=== PATIENT | female | born 1955 | race Caucasian/White ===

== ENCOUNTER 2019-10-27 13:28 | Outpatient (CLI) | payer OTHER, SELFPAY ==
--- NOTE | ~2019-10-27 | DEXA_ITS ---
BMD(1) Young-Adult(2,7) Age-Matched(3) Region (g/cm2) T-score Z-score WHO Classification Neck Left 1.102 0.5 1.7 Normal Right 1.079 0.3 1.6 Normal Mean 1.090 0.4 1.7 Normal Difference 0.024 0.2 0.2 - Total Left 1.274 2.1 3.1 Normal Right 1.161 1.2 2.2 Normal Mean 1.218 1.7 2.7 Normal Difference 0.113 0.9 0.9 - Hip [place] Length Comparison (mm) (Right = 99.8 mm) (Mean = 99.9 mm) (Left = 99.5 mm) Trend: Total Mean Change vs Change vs Measured Age BMD(1) Baseline Previous Date (years) (g/cm2) (%) (%) 10/27/2019 [age] 1.218 baseline - 1 - Statistically 68% of repeat scans fall within 1SD (+- 0.010 g/cm2 for DualFemur Total) 2 - [place] (Combined NHANES (ages 20-30) / iMega (ages 20-40)) Femur Reference Population (v112) 3 - Matched for Age, Weight (females 25-100 kg), Ethnic 7 - DualFemur Total T-score difference is 0.9. Asymmetry is Mild. 11 - World Health Organization - Definition of Osteoporosis and Osteopenia for Women: Normal = T-score at or above -1.0 SD; Osteopenia = T-score between -1.0 and -2.5 SD; Osteoporosis = T-score at or below -2.5 SD; (WHO definitions only apply when a young healthy Women reference database is used to determine T-scores.) Printed: 10/27/2019 2:40:26 PM (13.60); Filename: [id number]; Right Femur; 18.5:%Fat=27.1%; Neck Angle (deg)= 59; Scan Mode: Standard 37.0 uGy; Left Femur; 17.6:%Fat=34.6%; Neck Angle (deg)= 68; Scan Mode: Standard 37.0 uGy [employer] [id number] Dear Ellen Cotton, Your patient Micaela Smart completed a BMD test on 10/27/2019 using the [employer] DXA System (analysis version: 13.60) manufactured by [employer]. The following summarizes the results of our evaluation. PATIENT BIOGRAPHICAL: Name: Micaela Smart Date: 1955 Height: 59.0 in. Gender: Female Exam Date: 10/27/2019 Weight: 149.0 lbs. Indications: Back Pain, Breast Cancer, Caffeinated drinks, , Height Loss, History of Fracture (Adult), Menopause Fractures: Spine Treatments: Calcium, Evista, Multivitamin, Vitamin D ASSESSMENT: The BMD measured at Femur Neck Right is 1.079 g/cm2 with a T-score of 0.3. This patient is considered normal according to World Health Organization (WHO) criteria. Fracture risk is low. Site Region Measured Measured WHO Young Adult Young Adult BMD Date Age Classification T-score AM Z-score DualFemur Neck Left 10/27/2019 62.5 Normal 0.5 1.7 1.102 g/cm2 DualFemur Neck Right 10/27/2019 62.5 Normal 0.3 1.6 1.079 g/cm2 DualFemur Total Mean 10/27/2019 62.5 Normal 1.7 2.7 1.218 g/cm2 World Health Organization (WHO) criteria for post-menopausal, Women: Normal: T-score at or above -1 SD Osteopenia: T-score between -1 and -2.5 SD Osteoporosis: T-score at or below -2.5 SD RECOMMENDATIONS: All patients should ensure an adequate intake of dietary calcium (1200 mg/d) and vitamin D (400-800 IU daily). FOLLOW-UP: People with jade
[2019-10-27 13:52] LABS: Hematocrit 37.5 % (35.0-49.0); Hemoglobin 11.9 g/dL (12.0-15.0)
[2019-10-27 14:06] LABS: Hemoglobin A1C 5.7 % (<5.7)
[2019-10-27 14:09] LABS: Urine Cotinine NEGATIVE (Negative)
--- NOTE | 2019-10-27 14:10 | ECG_ITS ---
Measurements Intervals [place] Rate: 64 P: 12 SC: 148 QRS: 62 QRSD: 84 T: 31 QT: 404 QTc: 418 Interpretive Statements SINUS RHYTHM DELAYED PRECORDIAL R/S TRANSITION BORDERLINE ECG Electronically Signed On 10-27-2019 16:37:45 CDT by Ángel Tena D.O.
[2019-10-27 14:39] LABS: Estimated Glomerular Filt Rate > 60; Glucose 84 mg/dL (70-99)
== END 2019-10-27 13:29 | disposition home or self-care (01) ==
LOC: CHSIMG 13:39
PROVIDERS: PCP Family Medicine; Visit Provider Nurse Practitioner
DX: M17.12 Unilateral primary osteoarthritis, left knee (principal); Z13.820 Encounter for screening for osteoporosis; Z79.899 Other long term (current) drug therapy; Z13.1 Encounter for screening for diabetes mellitus
CPT/HCPCS: 77080; 80307; 82040; 82565; 82947; 83036; 85014; 85018; 93005

== ENCOUNTER 2019-11-22 09:52 | Outpatient (CLI) | payer OTHER, SELFPAY ==
[2019-11-22 11:04] LABS: Basophils Percent Auto 0.4 % (0.2-1.2); Eosinophils Absolute Auto 0.1 K/mm3 (0-0.3); Immature Granulocyte Absolute 0.01 K/mm3 (0.00-0.031); Immature Granulocyte Percent A 0.2 % (0-0.5); Lymphocytes Absolute Auto 1.42 K/mm3 (0.9-3.2); Lymphocytes Percent Auto 25.2 % (18.3-44.2); Mean Corpuscular HGB Conc 33.3 g/dl (32-36); Mean Corpuscular Volume 89.9 fl (80-100); Mean Platelet Volume 9.9 fl (7.4-10.4); Monocytes Absolute Auto 0.5 K/mm3 (0.1-0.6); Neutrophils Absolute Auto 3.6 K/mm3 (1.3-6.7); Neutrophils Percent Auto 64.2 % (45.5-73.1); Platelet Count Result 367 k/mm3 (150-375); Red Blood Count 4.34 M/mm3 (4.2-5.4); Red Cell Distribution Width 14.1 % (11.5-14.5); White Blood Count 5.6 K/mm3 (4.5-10.0)
== END 2019-11-22 09:53 | disposition home or self-care (01) ==
LOC: ANHSURGERY 09:57
PROVIDERS: PCP Family Medicine; Visit Provider Orthopaedic Surgery
DX: Z01.812 Encounter for preprocedural laboratory examination (principal); M17.12 Unilateral primary osteoarthritis, left knee
CPT/HCPCS: 36415; 85025; 87081

== ENCOUNTER 2019-12-17 01:11 | Outpatient (CLI) | payer OTHER, SELFPAY ==
[2019-12-17 18:04] LABS: SARS-CoV-2 RNA PCR Negative
== END 2019-12-17 01:12 | disposition home or self-care (01) ==
LOC: ANHCOVIDDT 01:11
PROVIDERS: PCP Family Medicine; Visit Provider Orthopaedic Surgery
DX: Z01.812 Encounter for preprocedural laboratory examination (principal); Z20.828 Contact with and (suspected) exposure to other viral communicable diseases
CPT/HCPCS: 87635; C9803; U0003

== ENCOUNTER 2019-12-20 00:24 | Day surgery (SDC) | payer OTHER, SELFPAY ==
[2019-11-22 10:25] VITALS: BP 130/76; PULSE 64; RESP 18; TEMP 37.3; O2SAT 98; BMI 31.9
[2019-12-20] VITALS (14 sets, daily range): BP systolic 91–127; BP diastolic 38–74; PULSE 61–96; RESP 10–18; TEMP 36–36.9; O2SAT 94–100
--- NOTE | ~2019-12-20 | XR_ITS ---
EXAMINATION: XR knee LT 2V DATE: 12/20/2019 13:09 INDICATION: Total left knee arthroplasty. Postop. TECHNIQUE: 2 views of left knee were obtained. COMPARISON: Left knee radiographs 11/28/2019 FINDINGS: There is a total left knee arthroplasty with patellar resurfacing. Tibia demonstrate 7 degr ees posterior angulation with respect to tibial component. No fracture. There is gas in the knee join t and soft tissues, consistent with recent surgery. IMPRESSION: 1. New total left knee arthroplasty. Reviewed, dictated and finalized at location A.
--- NOTE | 2019-12-20 07:23 | WPDHPUPDATE1 ---
History and Physical Update Update Date/Time: 12/20/19 07:23 History and Physical has been reviewed, including an updated exam of the patient. There are NO changes in the patient's condition. Risks, benefits, and alternatives have been discussed and questions answered. Patient agrees to proceed with procedure.
--- NOTE | 2019-12-20 08:22 | WPDANESEPPF ---
Anes - Initial Pre Proc Eval Procedure: Operation Date: 12/20/19 11:00 Proposed Procedures p Left Total Knee Arthroplasty - Howard Feliz MD Date/Time: 12/20/19 08:22 Surgeon: Howard Feliz MD Pre Op Diagnosis: Left Knee OA Patient Data Age: 64 Gender: F Height: 1.47 m Weight: 69.4 kg Last Vital Signs Temp 37.3 C 11/22/19 10:25 Pulse 64 11/22/19 10:25 Resp 18 11/22/19 10:25 BP 130/76 11/22/19 10:25 Pulse Ox 98 11/22/19 10:25 Allergies Allergy/AdvReac Type Severity Reaction Status Date / Time bee venom protein (honey bee) Allergy Mild Swelling Verified 12/20/19 09:56 ragweed pollen Allergy Itching Verified 12/20/19 09:56 tree and shrub pollen Allergy Itching Verified 12/20/19 09:56 adhesive tape AdvReac Rash Verified 11/28/19 15:17 Home Medications Medication Instructions Recorded Confirmed Type calcium carbonate-vitamin D3 1 tablet PO BID 12/16/18 11/28/19 History [Calcium 600 + D(3)] cetirizine 10 mg PO DAILY 12/16/18 11/28/19 History garlic 500 mg PO DAILY 12/16/18 11/28/19 History multivitamin 1 tablet PO DAILY 12/16/18 11/28/19 History raloxifene 60 mg PO DAILY 12/16/18 11/28/19 History gabapentin 300 mg capsule 300 mg PO BID #90 cap 07/05/19 11/28/19 Rx acetaminophen 500 mg tablet 1,000 mg PO Q4-6H PRN tablet 07/27/19 11/28/19 History diclofenac sodium 3 % topical gel 1 applic TOPICAL BID PRN #100 gm 07/27/19 11/28/19 Rx baclofen 10 mg tablet 10 mg PO TID PRN #90 tablet 11/03/19 11/28/19 Rx turmeric 1,200 mg PO DAILY 11/22/19 11/28/19 History Patient hx anesthesia problems: none Family hx anesthesia problems: none PMFSH Past Medical History Medical History (Updated 11/28/19 @ 16:50 by Howard Feliz MD) Arthritis Chronic lower back pain History of breast cancer 2017 - left breast Menopausal state Obesity (BMI 30.0-34.9) Prediabetes Seasonal allergies Surgical History Surgical History History of partial mastectomy 02/2017 - left: [place] w/ 03/2017-04/2017: Radiation Therapy in [place] :20 session: prone: History of spinal fusion lumbar: 07/2017: L5-S1: d/t paresthesias of left leg: History of total right knee replacement (~12/21/18) History of tubal ligation 1981 Family History Family History Other Breast cancer Mom's 1/2 sister w/ same mother Mother Heart disease Sibling Heart disease Diabetes mellitus Tobacco dependence Social History Social History Smoking status: Never smoker Second hand tobacco smoke exposure: No Alcohol intake: current Drinks per week: 2 Substance use: never Substance use type: does not use Living arrangements: with family Additional occupation/education comments: teacher Gender identity (if verbalized by the patient): Female Spiritual care concerns: No Agree to blood products: Yes Anes - Eval Final PreProcedure Day of Procedure 12/20/19 08:22 Patient weight: obese Heart: regular rate and rhythm Lungs: clear to auscultation and normal air movement Airway: Mallampati scale class II Neurological: alert and oriented Last oral intake: >/= 8 hours ASA classification: II Emergent: no Anesthetic plan: proceed Anesthesia type and monitoring: general LMA and standard monitoring Informed Consent: The patient's anesthetic plan and its attendant risks and benefits were discussed with the patient/family/POA. Questions were solicited and answers provided to the satisfaction of the patient/family/POA.
--- NOTE | 2019-12-20 08:34 | WPDANESPNB ---
Anes - Peripheral Nerve Block Date/Time: 12/20/19 08:34 I have discussed with the patient/family/POA the placement of a peripheral nerve block for post-operative pain management, including associated risks, benefits, complications, and side effects. Alternative methods of post-operative analgesia were detailed. Questions were solicited and answers provided to the satisfaction of the patient/family/POA. Time-Out: A pre-procedural Time-Out was completed immediately before starting the procedure and confirmed: Patient Identification, Site, Procedure, Patient Position and the Availability of Requisite Equipment. Clinical Indications: Acute post-operative pain management requested by the operative surgeon. Nerve Block Insertion Note Anes-nerve block: adductor canal left Patient position: supine Skin prep: chlorhexidine Needle: 22 gauge, stimulating, insulated echogenic needle. Needle length: 80 mm Technique: ultrasound Injectate: bupivacaine 0.5% with epi 5 mcg/ml (30cc) Observations: tolerated well Complications: none Procedure start time:: 953 Procedure end time:: 956
[2019-12-20] MEDS: LACTATED RINGERS 1,000 ML 30 ML IV CONT ×2 (09:38→13:05)
[2019-12-20] MEDS: TRANEXAMIC ACID 1,000MG/ISO100 1,000 MG/100 ML BAG 200 MG IVPB (09:40)
[2019-12-20] MEDS: ACETAMINOPHEN 500 MG TABLET 1000 MG PO (09:42)
[2019-12-20] MEDS: KETOROLAC 15 MG/ML VIAL (*BKC) IV PUSH (09:43)
[2019-12-20] MEDS: ceFAZolin 2 GM/D5W 50 ML 2 GM/50 ML BAG IVPB (10:22)
[2019-12-20] MEDS: GENTAMICIN BONE CEMENT REFOBACIN 1 EACH TOPICAL (11:13)
--- NOTE | 2019-12-20 12:42 | PM.PROC ---
Procedure Note - Detailed Date of procedure: 12/20/19 Pre-op diagnosis: Left Knee OA Post-op diagnosis: same Procedure performed: Total knee arthroplasty, left Description of procedure: Excellent bone quality. Patella baja. Preoperative contracture 15- 100. Large release with needle release. Slight PCL release. Femur sized line to line medial lateral with 3 degree external rotation. Implants: [employer] size 3 press-fit femur, size 2 cemented low-profile tibia, 11 mm CR polyethylene insert, 35 mm asymmetric metal backed patellar component. Anesthesia: GLMA and regional (subsartorial nerve block) Surgeon: Howard Feliz MD Estimated blood loss (mL): 100 Drains: No Complications: None Condition: stable Disposition: PACU Findings: OPERATIVE DETAILS: The patient was given a nerve block preoperatively, and then brought to the operating room. A general anesthetic was administered. The leg was prepped and draped in the usual sterile fashion. The limb was elevated and the tourniquet inflated to 300 mmHg during initial exposure, and cementation. A longitudinal incision was created along the medial border of the patella and patellar tendon, and a minimally invasive optimized mid-vastus approach to the knee was performed. A very large medial release was taken. The knee was then flexed. The osteophytes were carefully removed. The intramedullary guide was placed in the femoral canal. The distal femoral resection was then taken with the oscillating saw. The collateral ligaments were carefully protected. The tibia was carefully exposed. The jig was applied, and the proximal tibia was resected according to preoperative plan. The knee was balanced in extension. Appropriate releases were taken where needed. The anterior cruciate ligament and meniscal remnants were removed. The posterior cruciate ligament was preserved. The patella was measured. Patellar resection was carried out with the oscillating saw. The lug holes drilled. The femur was sized and rotation assessed using a combination of gap balancing, posterior referencing, and the AP axis. The 4 in 1 cutting block was used to finish the femoral cuts after equal gaps were assured. The lug holes were drilled. The osteophytes were carefully removed from the back of the knee. The knee was copiously irrigated with antibiotic solution periodically throughout the procedure. The meniscal remnants were removed. The spacer block was used to confirm equal flexion and extension gaps. Further releases were performed as needed. The tibia was sized and broached. The bony surfaces were prepared for cementing with pulsatile lavage. The real tibial component was cemented into position followed by press fitting the femoral component. Excess cement was carefully removed. The patella component was press-fit. Patellar tracking was carefully assessed. No additional releases were required. The wound was closed with #1 Vycril suture, #2 Quill suture, 0-Quill suture, and 2-0 Quill suture followed by Steri-Strips. A sterile bulky dressing was applied. Meticulous hemostasis was maintained throughout the procedure. There were no complications. The patient was extubated and brought to the recovery room in stable condition after the application of sterile dressing with Mathew bandage.
--- NOTE | 2019-12-20 12:56 | SUR.PHASEI ---
XRAYS DONE AT BEDSIDE
[2019-12-20] MEDS: fentaNYL CITRATE INJ (*CRX) 100 MCG/2 ML VIAL 25 MCG IV PUSH ×2 (13:18→13:28)
--- NOTE | 2019-12-20 13:37 | SUR.PHASEI ---
PT DOZING IN INTERVALS. REPORT FAXED TO FLOOR AT [id number]
--- NOTE | 2019-12-20 13:47 | SUR.PHASEI ---
PT AROUSES EASILY. DOZING. RESP EVEN UNLABORED. MEETS DISCHARGE CRITERIA.
[2019-12-20] MEDS: BACLOFEN 10 MG TABLET PO (16:55)
[2019-12-20] MEDS: GABAPENTIN 300 MG CAPSULE PO (16:58)
[2019-12-20] MEDS: MELOXICAM 7.5 MG TABLET PO (16:58)
[2019-12-20] MEDS: DOCUSATE SODIUM 100 MG CAPSULE PO (16:58)
[2019-12-20] MEDS: ASPIRIN 81 MG ENTERIC TABLET PO (16:59)
[2019-12-20] MEDS: oxyCODONE HCL (*CRX) 5 MG TAB IR PO (20:02)
[2019-12-20] MEDS: SENNOSIDES 8.6 MG TABLET 17.2 MG PO (20:02)
--- NOTE | 2019-12-20 21:56 | ADMGEN ---
This patient, Micaela Smart, was admitted to Medical Room 255-. Patient/family oriented to hospital policies and general routines including ID bracelet, bed and alarms, visiting hours, pain management, procedures, bathroom and other care routines, personal items, smoking policy, room service/diet, and visiting hours. Information on how to activate the Rapid Response Team has been discussed. Patient/Family are encouraged to report perceived risks to care and to ask questions if they do not understand what they are told or what they should do.
[2019-12-21 03:38] VITALS: BP 104/57; PULSE 69; RESP 16; TEMP 36.2; O2SAT 96
[2019-12-21 06:08] LABS: Basophils Percent Auto 0.1 % (0.2-1.2); Hematocrit 32.6 % (37.0-47.0); Hemoglobin 10.6 g/dL (12.0-15.0); Immature Granulocyte Absolute 0.06 K/mm3 (0.00-0.031); Immature Granulocyte Percent A 0.5 % (0-0.5); Lymphocytes Percent Auto 10.2 % (18.3-44.2); Mean Corpuscular HGB Conc 32.5 g/dl (32-36); Mean Corpuscular Hemoglobin 29.8 pg (26-34); Mean Corpuscular Volume 91.6 fl (80-100); Mean Platelet Volume 9.5 fl (7.4-10.4); Monocytes Absolute Auto 0.9 K/mm3 (0.1-0.6); Monocytes Percent Auto 6.8 % (2.6-8.5); Neutrophils Absolute Auto 10.5 K/mm3 (1.3-6.7); Neutrophils Percent Auto 82.4 % (45.5-73.1); Platelet Count Result 292 k/mm3 (150-375); Red Blood Count 3.56 M/mm3 (4.2-5.4); Red Cell Distribution Width 14.2 % (11.5-14.5); White Blood Count 12.7 K/mm3 (4.5-10.0)
[2019-12-21 06:19] LABS: Anion Gap 7 mmol/L (8-16); Blood Urea Nitrogen 17 mg/dL (7-17); Carbon Dioxide 27 mmol/L (22-30); Chloride 104 mmol/L (98-107); Estimated Glomerular Filt Rate > 60; Glucose 102 mg/dL (65-105); Potassium 4.4 mmol/L (3.4-5.0); Sodium 138 mmol/L (137-145)
[2019-12-21] MEDS: BACLOFEN 10 MG TABLET PO ×2 (06:39→14:13)
--- NOTE | 2019-12-21 07:45 | P.PNAN_ITS ---
Anes - Prog Note Post-Op Date/Time: 12/21/19 07:45 Cardiovascular status: normal Respiratory status: normal Airway patency: baseline Mental status: baseline Post-Op hydration status: normal Vital Signs: Last Vital Signs Temp 97.1 F L 12/21/19 03:38 Pulse 69 12/21/19 03:38 Resp 16 12/21/19 03:38 BP 104/57 L 12/21/19 03:38 Pulse Ox 96 12/21/19 03:38 Pain Score (VAS): 0/10 I/O: Intake & Output 12/20/19 12/20/19 12/21/19 15:59 23:59 07:59 Intake Total 590 1090 550 Output Total 200 1200 Balance 590 890 -650 Laboratory Tests 12/21/19 06:01 12/21/19 06:01 12/20/19 12/21/19 12/21/19 09:25 06:01 06:01 WBC 12.7 H RBC 3.56 L Hgb 10.6 L Hct 32.6 L MCV 91.6 MCH 29.8 MCHC 32.5 RDW 14.2 Plt Count 292 MPV 9.5 Immature Gran % (Auto) 0.5 Neut % (Auto) 82.4 H Lymph % (Auto) 10.2 L [place] % (Auto) 6.8 Eos % (Auto) 0.0 Baso % (Auto) 0.1 L Lymph # (Auto) 1.30 [place] # (Auto) 0.9 H Eos # (Auto) 0.0 Baso # (Auto) 0.0 Abs Immat Gran (auto) 0.06 H Absolute Neuts (auto) 10.5 H Absolute Nucleated RBC 0.0 Nucleated RBC % 0.0 Sodium 138 Potassium 4.4 Chloride 104 Carbon Dioxide 27 Anion Gap 7 L BUN 17 Creatinine 0.80 Estim Creat Clear Calc Not Reportable Estimated GFR > 60 Glucose 102 Calcium 9.0 Blood Type A Positive Antibody Screen Negative Post-procedural complaints: none Patient Feedback: Patient satisfied with anesthetic care.
[2019-12-21] MEDS: oxyCODONE HCL (*CRX) 5 MG TAB IR PO ×2 (08:24→12:32)
[2019-12-21] MEDS: ASPIRIN 81 MG ENTERIC TABLET PO (08:25)
[2019-12-21] MEDS: RALOXIFENE HCL (*CHEMO) 60 MG TABLET PO (08:25)
[2019-12-21] MEDS: LORATADINE 10 MG TABLET PO (08:25)
[2019-12-21] MEDS: MULTIVITAMINS THERAPEUTIC TAB (*BKC) 1 TABLET PO (08:25)
[2019-12-21] MEDS: DOCUSATE SODIUM 100 MG CAPSULE PO (08:25)
[2019-12-21] MEDS: GABAPENTIN 300 MG CAPSULE PO (08:26)
[2019-12-21 09:13] VITALS: BP 117/67; PULSE 93; RESP 16; TEMP 36.9; O2SAT 96
--- NOTE | 2019-12-21 10:37 | PCOTNOTE ---
On 12/21/19, the student, Annalee Trevizo, provided care and completed [facility] on this patient. I have reviewed the student's documentation and agree with the findings.
[2019-12-21] MEDS: MELOXICAM 7.5 MG TABLET PO (10:48)
--- NOTE | 2019-12-21 11:39 | PM.DS ---
DS: Admitting Diagnosis Admitting Diagnosis Admitting Diagnosis: Left Knee OA DS: Discharge Diagnosis Discharge Diagnosis (1) Status post total knee replacement, left: Code(s): Z96.652 - Presence of left artificial knee joint Status: Acute DS: Summary Hospital Course Reason for hospitalization: Total knee arthroplasty. Hospital Course: Tolerated surgery well. Progressed appropriately with therapy. Status at Discharge Functional status at discharge: uses cane/walker Overall status at discharge: patient is progressing back to baseline Time Spent with Patient Time attestation: Total time spent providing and/or coordinating discharge services: Exam Const: General: no acute distress Resp: Effort & Inspection: normal respiratory effort Skin: Other: Wound healing well. Mepilex dressing intact. No hematoma or drainage. Neuro: Motor exam (neuro): 5/5 motor strength present throughout Sensory Exam: normal sensation Psych: Mental Status: mental status grossly normal Speech and movement: Normal speech and movement present DS: Data Data Completed and Pending Labs on day of discharge: Labs from last 24 hours 12/21/19 12/21/19 06:01 06:01 WBC 12.7 H RBC 3.56 L Hgb 10.6 L Hct 32.6 L MCV 91.6 MCH 29.8 MCHC 32.5 RDW 14.2 Plt Count 292 MPV 9.5 Immature Gran % (Auto) 0.5 Neut % (Auto) 82.4 H Lymph % (Auto) 10.2 L [place] % (Auto) 6.8 Eos % (Auto) 0.0 Baso % (Auto) 0.1 L Lymph # (Auto) 1.30 [place] # (Auto) 0.9 H Eos # (Auto) 0.0 Baso # (Auto) 0.0 Abs Immat Gran (auto) 0.06 H Absolute Neuts (auto) 10.5 H Absolute Nucleated RBC 0.0 Nucleated RBC % 0.0 Sodium 138 Potassium 4.4 Chloride 104 Carbon Dioxide 27 Anion Gap 7 L BUN 17 Creatinine 0.80 Estim Creat Clear Calc Not Reportable Estimated GFR > 60 Glucose 102 Calcium 9.0 Discharge Plan Discharge Patient Disposition: Home, Self-Care Discharge Instructions: See instruction sheet. Patient Instructions: Precautions after Total Joint Replacement Surgery (DC), Knee Pain (GEN), Knee Replacement (GEN) Follow-up/Referrals: Howard Feliz MD [Physician] - Discharge Medications: New oxycodone-acetaminophen 5-325 mg tablet 1 - 2 tablet PO Q4-6H MDD 8 tablets PRN (Reason: pain) Qty: 40 RF: 0 Continued multivitamin Tablet 1 tablet PO DAILY RF: 0 cetirizine 10 mg Tablet 10 mg PO DAILY RF: 0 calcium carbonate-vitamin D3 [Calcium 600 + D(3)] 600 mg(1,500mg) -200 unit Tablet 1 tablet PO BID RF: 0 raloxifene 60 mg Tablet 60 mg PO DAILY RF: 0 garlic Tablet 500 mg PO DAILY RF: 0 acetaminophen 500 mg tablet 1,000 mg PO Q4-6H PRN (Reason: Pain (Scale Score 4-6)) RF: 0 gabapentin 300 mg capsule 300 mg PO BID Qty: 90 RF: 3 turmeric 400 mg Capsule 1,200 mg PO DAILY RF: 0 baclofen 10 mg tablet 10 mg PO TID PRN (Reason: muscle spasm of left leg) Qty: 90 RF: 1 Discontinued diclofenac sodium 3 % gel 1 applic TOPICAL BID PRN (Reason: keep pain level < 6) Qty: 100 RF: 3 Quality VTE Prophylaxis VTE prophylaxis: mechanical ordered (ODALYS bacon and Barb)
[2019-12-21 14:07] VITALS: BP 114/63; PULSE 92; RESP 16; TEMP 37.2; O2SAT 96
--- NOTE | 2019-12-21 14:39 | PC.NURSE ---
pt discharged home, here to transport pt, she did very well with therapy, sent home with cryo-cuff ice machine, did admin baclofen prior to discharge for ride home, pain 3/10 scale, taken by wheel chair to home pt understands and agrees with discharge info
--- NOTE | 2019-12-21 14:44 | PC.NURSE ---
On 12/21/19, the student, Crissy Greenfield, provided care and completed [employer] documentation on this patient. I have reviewed the student's documentation and agree with the findings.
== END 2019-12-21 14:30 | disposition home or self-care (01) ==
LOC: ANHSURGERY 08:59 → ANH2MED 13:55
PROVIDERS: PCP Family Medicine; Visit Provider Orthopaedic Surgery
PROC: (CPT 27447; principal; 2019-12-20 11:00)
DX: M17.12 Unilateral primary osteoarthritis, left knee (principal); G89.18 Other acute postprocedural pain; Z85.3 Personal history of malignant neoplasm of breast; R73.03 Prediabetes; E66.9 Obesity, unspecified; Z68.32 Body mass index [BMI] 32.0-32.9, adult
CPT/HCPCS: 27447; 64447; 36415; 73560; 80048; 85025; 86850; 86900; 86901; 97110; 97116; 97161; 97165; A9270; C1713; C1776; J0131; J0171; J0690; J1100; J1885; J2250; J2270; J2370; J2405; J2704; J2710; J2795; J3010; J7120

== ENCOUNTER 2022-01-29 08:44 | Outpatient (CLI) | payer OTHER, SELFPAY ==
[2022-01-29 09:27] LABS: Basophils Absolute Auto 0.03 K/mm3 (0.00-0.10); Basophils Percent Auto 0.5 % (0.0-1.0); Eosinophils Absolute Auto 0.15 K/mm3 (0.02-0.50); Eosinophils Percent Auto 2.4 % (1.0-6.0); Hematocrit 36.9 % (35.0-49.0); Hemoglobin 11.7 g/dL (12.0-15.0); Immature Granulocyte Absolute 0.02 K/mm3 (0.00-0.00); Immature Granulocyte Percent A 0.3 % (0.0-0.0); Lymphocytes Absolute Auto 1.74 K/mm3 (1.10-4.50); Lymphocytes Percent Auto 27.8 % (18.0-42.0); Mean Corpuscular HGB Conc 31.7 g/dL (32.0-36.0); Mean Corpuscular Hemoglobin 28.9 pg (27.0-31.0); Mean Corpuscular Volume 91.1 fL (78.0-102.0); Mean Platelet Volume 9.8 fl (9.2-11.8); Monocytes Absolute Auto 0.58 K/mm3 (0.10-0.90); Monocytes Percent Auto 9.3 % (2.0-11.0); Neutrophils Absolute Auto 3.7 K/mm3 (1.7-7.2); Neutrophils Percent Auto 59.7 % (50.0-70.0); Platelet Count Result 347 K/mm3 (150-420); Red Blood Count 4.05 M/mm3 (4.20-5.40); Red Cell Distribution Width 13.4 % (11.6-14.4); White Blood Count 6.3 K/mm3 (4.8-10.8)
[2022-01-29 09:50] LABS: Hemoglobin A1C 5.8 % (<5.7)
[2022-01-29 10:21] LABS: Alanine Aminotransferase 15 U/L (14-59); Albumin Level 3.6 g/dL (3.4-5.0); Alkaline Phosphatase 71 U/L (46-116); Anion Gap 8 mmol/L (8-16); Aspartate Amino Transferase 18 U/L (15-37); Bilirubin,Total 0.2 mg/dL (0.00-1.00); Blood Urea Nitrogen 14 mg/dL (7-18); Calcium 8.8 mg/dL (8.5-10.1); Carbon Dioxide 29 mmol/L (21-32); Chloride 108 mmol/L (98-108); Cholesterol 205 mg/dL (0-200); Estimated Glomerular Filt Rate > 60; Glucose 92 mg/dL (70-99); HDL Direct 53 mg/dL (40-60); LDL Cholesterol Calculated 125 mg/dL (<130); Osmolality Calculated 300 mOsm/kg (285-295); Potassium 4.7 mmol/L (3.5-5.1); Sodium 145 mmol/L (136-145); Total Protein 6.5 g/dL (6.4-8.2); Triglycerides 136 mg/dL (0-150)
[2022-01-29 10:59] LABS: Thyroid Stimulating Hormone Reflex 1.04 u/IU/mL (0.36-3.74); Vitamin B12 383 pg/mL (193-986)
[2022-02-03 15:45] LABS: Vitamin D 25 Hydroxy 32 ng/mL (30-100)
== END 2022-01-29 08:45 | disposition home or self-care (01) ==
LOC: CHSLAB 08:47
PROVIDERS: PCP Family Medicine; Visit Provider Family Medicine
DX: Z00.00 Encounter for general adult medical examination without abnormal findings (principal); R73.03 Prediabetes; Z13.220 Encounter for screening for lipoid disorders; Z13.29 Encounter for screening for other suspected endocrine disorder; Z79.899 Other long term (current) drug therapy; E55.9 Vitamin D deficiency, unspecified; E53.8 Deficiency of other specified B group vitamins
CPT/HCPCS: 36415; 80053; 80061; 82306; 82607; 83036; 84443; 85025

== ENCOUNTER 2022-08-12 09:52 | Outpatient (CLI) | payer MEDICARE, SELFPAY ==
[2022-08-12 17:00] LABS: Hemoglobin A1C 5.4 % (<5.7)
== END 2022-08-12 09:53 | disposition home or self-care (01) ==
LOC: ANHGOSHLAB 09:53
PROVIDERS: PCP Family Medicine; Visit Provider Family Medicine
DX: R73.03 Prediabetes (principal)
CPT/HCPCS: 36415; 83036

== ENCOUNTER 2023-07-14 07:35 | Day surgery (SDC) | payer MEDICARE, SELFPAY ==
[2023-06-29 09:22] VITALS: BMI 32.0
[2023-07-02 13:40] VITALS: BMI 32.5
--- NOTE | 2023-07-14 06:50 | WPDANESEPPF ---
Anes - Initial Pre Proc Eval Procedure: Operation Date: 07/14/23 09:30 Proposed Procedures p Screening Colonoscopy - Aj Avalos MD Date/Time: 07/14/23 06:50 Surgeon: Aj Avalos MD Pre Op Diagnosis: Screening for neoplasm of colon Patient Data Age: 68 Gender: F Height: 1.49 m Weight: 72 kg Allergies Allergy/AdvReac Type Severity Reaction Status Date / Time bee venom protein (honey bee) Allergy Mild Swelling Verified 07/14/23 08:09 ragweed pollen Allergy Itching Verified 07/14/23 08:09 tree and shrub pollen Allergy Itching Verified 07/14/23 08:09 adhesive tape AdvReac Rash Verified 07/14/23 08:09 Home Medications Medication Instructions Recorded Confirmed Type cetirizine 10 mg tablet 10 mg PO DAILY 12/16/18 07/14/23 History multivitamin 1 tablet PO DAILY 12/16/18 07/14/23 History acetaminophen 500 mg tablet 1,000 mg PO Q4-6H PRN Pain (Scale 07/27/19 07/14/23 History Score 4-6) turmeric 400 mg capsule 1,200 mg PO DAILY 11/22/19 07/14/23 History Prevagen 1 cap PO DAILY 07/02/23 07/14/23 History Patient hx anesthesia problems: none Family hx anesthesia problems: none Results Review: All pre-operative results and documents have been reviewed as part of the pre-operative evaluation. [facility] Past Medical History Medical History Chronic lower back pain History of breast cancer 2016 - left breast History of left breast cancer Menopausal state Obesity (BMI 30.0-34.9) Osteoarthritis Prediabetes Seasonal allergies Surgical History Surgical History History of partial mastectomy 02/2017 - left: [place] w/ 03/2017-04/2017: Radiation Therapy in [place] :20 session: prone: History of spinal fusion lumbar: 07/2017: L5-S1 fusion 08/2017 - revision History of total left knee replacement (~12/20/19) History of total right knee replacement (~12/21/18) History of tubal ligation 1982 Family History Family History Other Breast cancer Mom's 1/2 sister w/ same mother Mother Heart disease Sibling Heart disease Diabetes mellitus Tobacco dependence Social History Social History Smoking status: Never smoker Second hand tobacco smoke exposure: No Alcohol intake: current Drinks per week: 2 Alcohol use details: week Substance use: never Substance use type: does not use Lack of Transportation: No Lack of Food: Never True Current Housing: I Have Housing Concerned About Future Housing: No Difficulty Paying Gas/Electric Bills: No Difficulty Paying for Meds: No Currently Unemployed: No Education: Master's Degree or Higher Difficulty w/ Childcare or Family Care: No Living arrangements: with family Additional living arrangements comments: Occupation/Education: occupation Additional occupation/education comments: teacher Gender identity (if verbalized by the patient): Female Sexual Orientation (if Verbalized by the Patient): Straight or Heterosexual Spiritual care concerns: No Agree to blood products: Yes Anes - Eval Final PreProcedure Day of Procedure 07/14/23 06:50 Patient weight: obese Heart: regular rate and rhythm Lungs: clear to auscultation Airway: Mallampati scale class II Neurological: alert and oriented Last oral intake: >/= 8 hours ASA classification: II Emergent: no Anesthetic plan: proceed Anesthesia type and monitoring: general GIVS and standard monitoring Results Review: All pre-operative results and documents have been reviewed as part of the pre-operative evaluation. Informed Consent: The patient's anesthetic plan and its attendant risks and benefits were discussed with the patient/family/POA. Questions were solicited and answers provided to the satisfaction of the patient/family/POA.
[2023-07-14 08:17] VITALS: BP 120/77; PULSE 84; RESP 16; TEMP 36.5; O2SAT 97
[2023-07-14] MEDS: LACTATED RINGERS 1,000 ML 150 ML IV CONT (08:24)
--- NOTE | 2023-07-14 08:38 | PM.HPGS ---
History of Present Illness History of Present Illness Consent: Risks, benefits, and alternatives have been discussed and questions answered. Patient agrees to proceed with procedure. Chief complaint: Screening for neoplasm of colon Narrative: Micaela Smart is a 68 year old female . Who was referred for colon cancer screening. Review of Systems Review of Systems: All systems reviewed & are unremarkable except as noted in HPI and below PMFSH Past Medical History Medical History Chronic lower back pain History of breast cancer 2017 - left breast History of left breast cancer Menopausal state Obesity (BMI 30.0-34.9) Osteoarthritis Prediabetes Seasonal allergies Surgical History Surgical History History of partial mastectomy 02/2017 - left: [place] w/ 03/2017-04/2017: Radiation Therapy in [place] :20 session: prone: History of spinal fusion lumbar: 07/2017: L5-S1 fusion 08/2017 - revision History of total left knee replacement (~12/20/19) History of total right knee replacement (~12/21/18) History of tubal ligation 1981 Family History Family History Other Breast cancer Mom's 1/2 sister w/ same mother Mother Heart disease Sibling Heart disease Diabetes mellitus Tobacco dependence Social History Social History Smoking status: Never smoker Second hand tobacco smoke exposure: No Alcohol intake: current Drinks per week: 2 Alcohol use details: week Substance use: never Substance use type: does not use Lack of Transportation: No Lack of Food: Never True Current Housing: I Have Housing Concerned About Future Housing: No Difficulty Paying Gas/Electric Bills: No Difficulty Paying for Meds: No Currently Unemployed: No Education: Master's Degree or Higher Difficulty w/ Childcare or Family Care: No Living arrangements: with family Additional living arrangements comments: Occupation/Education: occupation Additional occupation/education comments: teacher Gender identity (if verbalized by the patient): Female Sexual Orientation (if Verbalized by the Patient): Straight or Heterosexual Spiritual care concerns: No Agree to blood products: Yes Meds Home Medications and Allergies Home Medications Medication Instructions Recorded Confirmed Type cetirizine 10 mg tablet 10 mg PO DAILY 12/16/18 07/14/23 History multivitamin 1 tablet PO DAILY 12/16/18 07/14/23 History acetaminophen 500 mg tablet 1,000 mg PO Q4-6H PRN Pain (Scale 07/27/19 07/14/23 History Score 4-6) turmeric 400 mg capsule 1,200 mg PO DAILY 11/22/19 07/14/23 History Prevagen 1 cap PO DAILY 07/02/23 07/14/23 History Allergies Allergy/AdvReac Type Severity Reaction Status Date / Time bee venom protein (honey bee) Allergy Mild Swelling Verified 07/14/23 08:09 ragweed pollen Allergy Itching Verified 07/14/23 08:09 tree and shrub pollen Allergy Itching Verified 07/14/23 08:09 adhesive tape AdvReac Rash Verified 07/14/23 08:09 Vital Signs Vital Signs - 24 hr 07/14/23 08:17 Temperature 36.5 C Pulse Rate 84 Respiratory Rate 16 Blood Pressure 120/77 Pulse Oximetry 97 Oxygen Delivery Room Air Exam Resp: Auscultation: clear to auscultation bilaterally Cardio: Rate: regular rate Rhythm: regular rhythm GI: GI Palp: Yes Soft to palpation and No Tenderness to palpation present (GI) Assessment and Plan Assessment and plan (1) Colon cancer screening: Code(s): Z12.11 - Encounter for screening for malignant neoplasm of colon Status: Acute Assessment and Plan: Colonoscopy with possible biopsy or polypectomy or cautery or injection of substances.
[2023-07-14 09:07] VITALS: BP 88/60; PULSE 78; RESP 14; O2SAT 97
[2023-07-14 09:17] VITALS: BP 84/48; PULSE 66; RESP 14; O2SAT 97
[2023-07-14 09:27] VITALS: BP 98/55; PULSE 71; RESP 16; O2SAT 100
--- NOTE | 2023-07-14 11:06 | WPDANESPN ---
Anes - Prog Note Post-Op Date/Time: 07/14/23 11:06 Cardiovascular status: normal Respiratory status: normal Airway patency: baseline Mental status: baseline Post-Op hydration status: normal Vital Signs: Last Vital Signs Temp 36.5 C 07/14/23 08:17 Pulse 71 07/14/23 09:27 Resp 16 07/14/23 09:27 BP 98/55 L 07/14/23 09:27 Pulse Ox 100 07/14/23 09:27 O2 Del Method Room Air 07/14/23 09:27 Pain Score (VAS): 0 I/O: Intake & Output 07/13/23 07/14/23 07/14/23 23:59 07:59 15:59 Intake Total 400 Balance 400 Post-procedural complaints: none Patient Feedback: Patient satisfied with anesthetic care. Other Findings: Patient vital signs back to baseline. Patient denies nausea and vomiting. Patient's pain under control. Patient OK for discharge.
== END 2023-07-14 09:37 | disposition home or self-care (01) ==
PROVIDERS: PCP Family Medicine; Visit Provider Internal Medicine Gastroenterology
PROC: 0DJD8ZZ Inspection of Lower Intestinal Tract, Via Natural or Artificial Opening Endoscopic (ICD-10-PCS; CPT 45378; principal; 2023-07-14 09:30)
DX: Z12.11 Encounter for screening for malignant neoplasm of colon (principal); K64.8 Other hemorrhoids
CPT/HCPCS: 45378

== ENCOUNTER 2024-02-04 11:32 | Outpatient (CLI) | payer MEDICARE, SELFPAY ==
[2024-02-04 13:33] LABS: Hemoglobin A1C 5.8 % (<5.7)
[2024-02-04 13:42] LABS: Basophils Percent Auto 0.4 % (0.2-1.2); Eosinophils Absolute Auto 0.1 K/mm3 (0-0.3); Eosinophils Percent Auto 1.2 % (0-4.4); Hematocrit 42.7 % (37.0-47.0); Hemoglobin 13.6 g/dL (12.0-15.0); Immature Granulocyte Absolute 0.02 K/mm3 (0.00-0.031); Immature Granulocyte Percent A 0.3 % (0-0.5); Lymphocytes Percent Auto 28.2 % (18.3-44.2); Mean Corpuscular HGB Conc 31.9 g/dl (32-36); Mean Corpuscular Hemoglobin 28.8 pg (26-34); Mean Corpuscular Volume 90.3 fl (80-100); Mean Platelet Volume 10.2 fl (7.4-10.4); Monocytes Absolute Auto 0.6 K/mm3 (0.1-0.6); Monocytes Percent Auto 7.6 % (2.6-8.5); Neutrophils Absolute Auto 4.7 K/mm3 (1.3-6.7); Neutrophils Percent Auto 62.3 % (45.5-73.1); Platelet Count Result 390 k/mm3 (150-375); Red Blood Count 4.73 M/mm3 (4.2-5.4); Red Cell Distribution Width 14.3 % (11.5-14.5); White Blood Count 7.5 K/mm3 (4.5-10.0)
[2024-02-04 13:44] LABS: Add Urine Microscopic? YES; Appearance Urine Clear (Clear); Bilirubin Urine Negative (Negative); Blood Urine Negative (Negative); Color Urine Yellow (Yellow); Glucose Urine UA Negative (Negative); Ketones Urine Negative (Negative); Leukocyte Esterase Ur 2+ LEU/UL (Negative); Nitrate Urine Negative (Negative); Protein Urine Negative (Negative); Urobilinogen Urine 0.2 mg/dL (<2.0); pH Urine 5.5 (5.0-9.0)
[2024-02-04 13:45] LABS: Alanine Aminotransferase 23 U/L (6-35); Albumin Level 4.6 g/dL (3.5-5.1); Alkaline Phosphatase 77 U/L (38-126); Anion Gap 4 mmol/L (4-12); Aspartate Amino Transferase 74 U/L (14-36); Bilirubin,Total 0.5 mg/dL (0.2-1.3); Blood Urea Nitrogen 14 mg/dL (7-17); Calcium 10.1 mg/dL (8.4-10.2); Carbon Dioxide 33 mmol/L (22-30); Chloride 103 mmol/L (98-107); Cholesterol 244 mg/dL (0-200); Estimated Glomerular Filt Rate > 60; Glucose 91 mg/dL (65-110); HDL Direct 55 mg/dL; Potassium 4.8 mmol/L (3.4-5.0); Sodium 140 mmol/L (137-145); Triglycerides 186 mg/dL (<150)
[2024-02-04 13:51] LABS: Vitamin D 25 Hydroxy 29.4 ng/mL
[2024-02-04 13:56] LABS: LDL Cholesterol Direct 125 mg/dL
[2024-02-04 14:15] LABS: Bacteria Urine Trace /hpf; RBC Urine 0-2 /hpf (0-2)
== END 2024-02-04 11:33 | disposition home or self-care (01) ==
LOC: ANHGOSHLAB 11:33
PROVIDERS: PCP Family Medicine; Visit Provider Family Medicine
DX: E78.5 Hyperlipidemia, unspecified (principal); R73.03 Prediabetes; Z00.00 Encounter for general adult medical examination without abnormal findings; Z13.29 Encounter for screening for other suspected endocrine disorder; E53.8 Deficiency of other specified B group vitamins; E55.9 Vitamin D deficiency, unspecified; R31.29 Other microscopic hematuria
CPT/HCPCS: 36415; 80053; 80061; 81001; 82306; 82607; 83036; 84443; 85025; 87086

== ENCOUNTER 2024-04-25 11:48 | Outpatient (CLI) | payer MEDICARE, SELFPAY | END 2024-04-25 11:49 | disposition home or self-care (01) | LOC: CHSIMG 11:50 | PROVIDERS: PCP Family Medicine; Visit Provider Family Medicine | DX: Z78.0 Asymptomatic menopausal state (principal) | CPT/HCPCS: 77080 ==